=== PATIENT | female | born 1980 | race Caucasian/White ===

== ENCOUNTER 2018-03-19 21:18 | Emergency (ER) | payer OTHER ==
[~2018-03-19] VITALS: Ht 160 cm; Wt 63.5 kg
[2018-03-19] MEDS ORDERED: NOHOMEMEDICATIONS (21:28)
[2018-03-19] MEDS ORDERED: ACETAMINOPHEN-1 EAC1 PO (22:20)
[2018-03-19] MEDS ORDERED: IBUPROFEN 800800 MG PO (22:20)
[2018-03-19 22:38] VITALS: BP 116/77
== END 2018-03-19 22:40 | disposition home or self-care (01) ==
LOC: M.ERS 21:18
DX: M25.511 Pain in right shoulder (principal)

== ENCOUNTER 2018-07-08 12:57 | Emergency (ER) | payer OTHER ==
[~2018-07-08] VITALS: Ht 162.6 cm; Wt 65.3 kg
[~2018-07-08 12:57] MED LIST: ACETAMINOPHEN-1 EAC1 PO; IBUPROFEN 800800 MG PO; NOHOMEMEDICATIONS
[2018-07-08 13:02] VITALS: BP 125/93
[2018-07-08] MEDS ORDERED: NORCO 5-325 TA1 EAC1 PO (13:13)
[2018-07-08] MEDS ORDERED: PENICILLIN VK500 MG PO (13:13)
== END 2018-07-08 13:23 | disposition home or self-care (01) ==
LOC: M.ERS 12:57
DX: K02.9 Dental caries, unspecified (principal); K04.7 Periapical abscess without sinus